=== PATIENT | female | born 2000 | race Two or more races ===

== ENCOUNTER 2020-09-23 11:28 | Emergency (ER) | payer OTHER ==
[~2020-09-23] VITALS: Ht 160 cm; Wt 61.2 kg
[2020-09-23 11:29] VITALS: BP 123/77
[2020-09-23 11:35] VITALS: BP 123/77
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
[2020-09-23 12:34] VITALS: BP 114/55
== END 2020-09-23 12:38 | disposition home or self-care (01) ==
LOC: ER 11:28
DX: S00.03XA Contusion of scalp, initial encounter (principal); R68.84 Jaw pain; V49.9XXA Car occupant (driver) (passenger) injured in unspecified traffic accident, initial encounter; Y93.89 Activity, other specified; Y92.488 Other paved roadways as the place of occurrence of the external cause; Y99.8 Other external cause status
CPT/HCPCS: 99284